=== PATIENT | female | born 1985 | race Hispanic/Latino ===

== ENCOUNTER 2016-11-10 00:40 | Emergency (ER) | payer BC ==
[2016-11-10 00:52] VITALS: BP 131/77; PULSE 101; RESP 17; TEMP 97.6; O2SAT 99
[2016-11-10] MEDS ORDERED: TDAP Vaccine 0.5 mL Syr IM ONE (01:18)
--- NOTE | 2016-11-10 01:44 | ED PDOC ---
HPI: Wound Care - HPI Time Seen by Provider: 11/10/16 01:02 Chief Complaint (Nursing): Abnormal Skin Integrity Chief Complaint (Provider): Left Foot Laceration History Of Present Illness: Jill Tim, a 31 year old female, presents to the ED for a left foot laceration she obtained prior to arrival. The patient states she was in a bar when she stepped on broken glass and cut her left foot. She states that she is in a small amount of pain and there was a small amount of bleeding. Patient says she's not sure about her tetanus status. Past Medical History Reviewed: Historical Data, Nursing Documentation, Vital Signs Vital Signs: Last Vital Signs Temp 97.6 F 11/10/16 00:50 Pulse 101 H 11/10/16 00:50 Resp 17 11/10/16 00:50 BP 131/77 11/10/16 00:50 Pulse Ox 99 11/10/16 00:50 - Medical History PMH: No Chronic Diseases - Surgical History Surgical History: No Surg Hx - Family History Family History: States: Unknown Family Hx - Home Medications Home Medications: Ambulatory Orders Medication Instructions Recorded Ciprofloxacin HCl [Cipro] 500 mg PO BID #14 tablet 04/03/16 metroNIDAZOLE [Flagyl] 500 mg PO BID #14 tab 04/03/16 Cephalexin [Keflex] 500 mg PO BID #10 capsule 11/10/16 - Allergies Allergies/Adverse Reactions: Allergies Allergy/AdvReac Type Severity Reaction Status Date / Time No Known Allergies Allergy Verified 04/02/16 21:45 Review of Systems ROS Statement: Except As Marked, All Systems Reviewed And Found Negative Musculoskeletal: Positive for: Other (Left foot laceration.) Physical Exam - Reviewed Nursing Documentation Reviewed: Yes Vital Signs Reviewed: Yes - Physical Exam Appears: Positive for: Well, Non-toxic, No Acute Distress Eye Exam: Positive for: EOMI Cardiovascular/Chest: Positive for: Regular Rate, Rhythm Respiratory: Negative for: Respiratory Distress Extremity: Positive for: Normal ROM, Other (Left foot exam 2cm laceration medial aspect of left foot; No active bleeding; No foreign bodies.). Negative for: Pedal Edema, Deformity, Swelling Neurologic/Psych: Positive for: Alert, Oriented - ECG O2 Sat by Pulse Oximetry: 99 (RA) Pulse Ox Interpretation: Normal Medical Decision Making Medical Decision Makin Initial Impression: 31 year old female presenting with left foot laceration Initial plan: * RAD Foot AP LAT LT * Boostrix .5ml IM * Reevaluation Spoke with podiatry consult who will perform laceration repair. Pt seen by podiatry [facility] who repairs the laceration. Dr Luke was notified. Scribe Attestation Documented by Isha Hastings acting as a scribe for Johana Zaragoza MD. Provider Attestation All medical record entries made by the Scribe were at my direction and personally dictated by me. I have reviewed the chart and agree that the record accurately reflects my personal performance of the history, physical exam, medical decision making, and the department course for this patient. I have also personally directed, reviewed, and agree with the discharge instructions and disposition Disposition - Clinical Impression Clinical Impression: Laceration of left foot - Patient ED Disposition Is Patient to be Admitted: No Doctor Will See Patient In The: Office Counseled Patient/Family Regarding: Studies Performed, Diagnosis, Need For Followup - Disposition Referrals: Podiatry Clinic [Outside] Noel Luke DPM [Staff Provider] - Disposition: Routine/Home Disposition Time: 02:52 Condition: GOOD Additional Instructions: Take medications as instructed. Follow up with Dr Luke in 1 week. Prescriptions: Cephalexin [Keflex] 500 mg PO BID #10 capsule Instructions: Laceration (ED), Care For Your Stitches (ED)
[2016-11-10] MEDS ORDERED: Lidocaine 1% Inj (20ml) IJ STA (01:54)
--- NOTE | 2016-11-10 01:55 | CP.PCM.CON ---
History of Present Illness - History of Present Illness History of Present Illness: This is a 31 yo female pt with unremarkable pmh who presents to ED today with laceration to left foot sustained earlier. 2 female friends are present with patient at the bedside. Pt says that she and her friends were at bar earlier and she cut her foot on a piece of broken glass. Says that she was wearing sandals at the time. Decided to come to ED as foot was bleeding and had pain. Says she can walk but with pain. Denies any other injuries, denies f/n/v/c/sob/ cp/numbness or tingling. Review of Systems - Review of Systems Review of Systems: as per hpi Past Patient History - Past Social History Smoking Status: Unknown If Ever Smoked - PSYCHIATRIC Hx Substance Use: No - SURGICAL HISTORY Hx Surgeries: No Meds Allergies/Adverse Reactions: Allergies Allergy/AdvReac Type Severity Reaction Status Date / Time No Known Allergies Allergy Verified 04/02/16 21:45 Physical Exam - Constitutional Appears: Well, Non-toxic, No Acute Distress - Extremities Exam Additional comments: Left low ext focused VASC- DP/PT pulses 2/4, TG runs warm to cool from proximal to distal, cap refill < 3 sec to all digits, no pedal edema NEURO- protective sensation grossly intact DERM- 2 cm linear laceration noted to medial arch with subcutaneous fat exposed , no active bleeding, no foreign body, negative probe to bone ORTHO- tenderness to palp medial arch, able to wiggle all toes freely - Neurological Exam Neurological exam: Alert, CN II-XII Intact, Oriented x3 - Psychiatric Exam Psychiatric exam: Normal Affect, Normal Mood Results - Vital Signs Recent Vital Signs: Last Vital Signs Temp 97.6 F 11/10/16 00:50 Pulse 101 H 11/10/16 00:50 Resp 17 11/10/16 00:50 BP 131/77 11/10/16 00:50 Pulse Ox 99 11/10/16 01:47 Assessment & Plan - Assessment and Plan (Free Text) Assessment: 31 yo female patient with laceration of left foot 2/2 trauma Plan: Pt S&E at bedside in ED Plan discussed with attending Dr. Luke Left foot x-ray reviewed: neg for fx or dislocation, neg for foreign body Left foot cleansed with sterile saline and alcohol prep. 10cc of 1% lidocaine plain injected in local block fashion to left foot, once adequate anesthesia achieved, foot prepped with chlorhexadine and draped. 20 cc of sterile normal saline used to copiously flush wound 4-0 nylon suture used to reapproximate skin edges with good coaptation noted. Foot dressed with betadine soaked gauze, DSD and kerlix. Surgical shoe dispensed and applied. Advised pt to keep dressing c/d/i (cast bag for showering) Wear surgical shoe at all times for ambulation with heel weight-bearing TDAP per ED Recommend course po keflex Pt is to f/u with Dr. Clinton in the [place] office within 1 week for evaluation and suture removal.
[2016-11-10] MEDS ORDERED: Lidocaine 1% Inj (20ml) ONE (02:06)
--- NOTE | 2016-11-10 12:15 | RAD ---
PROCEDURE: Left Foot Radiographs. HISTORY: foot injury laceration COMPARISON: None. FINDINGS: BONES: Technically limited. No fracture. No radiopaque foreign body. JOINTS: Normal. SOFT TISSUES: Normal. OTHER FINDINGS: None. IMPRESSION: Normal left foot radiographs.
== END 2016-11-10 03:00 | disposition home or self-care (01) ==
LOC: H.ER 00:40
DX: S91.312A Laceration without foreign body, left foot, initial encounter (principal); W25.XXXA Contact with sharp glass, initial encounter; Y92.89 Other specified places as the place of occurrence of the external cause

== ENCOUNTER 2017-07-11 21:47 | Emergency (ER) | payer BC ==
[2017-07-11] MEDS ORDERED: Lidocaine 1% w Epi 1:100,000 Inj ONE (22:57)
[2017-07-12 11:49] VITALS: BP 118/75; PULSE 66; RESP 13; TEMP 97.4; O2SAT 95
--- NOTE | 2017-08-07 10:46 | ED PDOC ---
Upper Extremity Pain/Injury Time Seen by Provider: 07/11/17 22:04 Chief Complaint (Nursing): Finger,Hand,&Wrist Chief Complaint (Provider): Hand Pain History Per: Patient History/Exam Limitations: no limitations Current Symptoms Are (Timing): Still Present Quality: Aching Past Medical History Reviewed: Historical Data, Nursing Documentation, Vital Signs Vital Signs: Last Vital Signs Temp 97.4 F L 07/11/17 21:50 Pulse 66 07/11/17 21:50 Resp 13 07/11/17 21:50 BP 118/75 07/11/17 21:50 Pulse Ox 95 07/11/17 21:50 - Family History Family History: States: Unknown Family Hx - Home Medications Home Medications: Ambulatory Orders Medication Instructions Recorded Ciprofloxacin HCl [Cipro] 500 mg PO BID #14 tablet 04/03/16 metroNIDAZOLE [Flagyl] 500 mg PO BID #14 tab 04/03/16 Cephalexin [Keflex] 500 mg PO BID #10 capsule 11/10/16 Cephalexin [cephalexin] 500 mg PO QID #40 cap 07/11/17 - Allergies Allergies/Adverse Reactions: Allergies Allergy/AdvReac Type Severity Reaction Status Date / Time No Known Allergies Allergy Verified 07/11/17 21:53 Review of Systems ROS Statement: Except As Marked, All Systems Reviewed And Found Negative Musculoskeletal: Positive for: Hand Pain Physical Exam - Reviewed Nursing Documentation Reviewed: Yes Vital Signs Reviewed: Yes - Physical Exam Appears: Positive for: Well, No Acute Distress. Negative for: Uncomfortable Head Exam: Positive for: ATRAUMATIC, NORMAL INSPECTION, NORMOCEPHALIC Neck: Positive for: Normal, Painless ROM, Supple. Negative for: Decreased ROM Cardiovascular/Chest: Positive for: Regular Rate, Rhythm, Chest Non Tender. Negative for: Edema, Gallop, Murmur, Bradycardia, Tachycardia Respiratory: Positive for: Normal Breath Sounds. Negative for: Accessory Muscle Use, Crackles, Rales, Rhonchi, Stridor, Wheezing, Respiratory Distress Pulses-Carotid (L): 2+ Pulses-Carotid (R): 2+ Pulses-Radial (L): 2+ Pulses-Radial (R): 2+ Extremity: Positive for: Normal ROM, Tenderness DTR - Bicep (R): 2+ DTR - Bicep (L): 2+ DTR - Ankle (R): 2+ DTR - Ankle (L): 2+ - ECG O2 Sat by Pulse Oximetry: 95 Procedures - Laceration/Wound Repair Left Anterior Lateral Hand Wound's Depth, Shape: superficial Wound Explored: clean Irrigated w/ Saline (ccs): 500 Betadine Prep?: Yes Anesthesia: 1% Lidocaine Volume Anesthetic (ccs): 3 Wound Repaired With: Sutures Suture Size/Type: 4:0, proline Number of Sutures: 4 Wound Complexity: Simple Sterile Dressing Applied?: Yes Splint Applied?: No Sling Applied?: No Disposition - Clinical Impression Clinical Impression: Laceration - Patient ED Disposition Is Patient to be Admitted: No Doctor Will See Patient In The: Office Counseled Patient/Family Regarding: Diagnosis, Need For Followup, Rx Given - Disposition Disposition: Routine/Home Disposition Time: 22:00 Condition: GOOD Prescriptions: Cephalexin [cephalexin] 500 mg PO QID #40 cap Instructions: Laceration Repair Forms: [email or web address] (L[place]anese)
== END 2017-07-11 23:38 | disposition home or self-care (01) ==
LOC: H.ER 21:47
DX: S61.412A Laceration without foreign body of left hand, initial encounter (principal); X58.XXXA Exposure to other specified factors, initial encounter